=== PATIENT | male | born 1985 | race Hispanic/Latino ===

== ENCOUNTER 2021-09-22 10:08 | Emergency (ER) | payer OTHER ==
[~2021-09-22] VITALS: Ht 165.1 cm; Wt 73.9 kg
[2021-09-22 10:10] VITALS: BP 121/74
[2021-09-22] MEDS ORDERED: IBUPROFEN 600MG TAB PO ONE (13:45)
== END 2021-09-22 13:58 | disposition home or self-care (01) ==
LOC: M ED 10:08
DX: S16.1XXA Strain of muscle, fascia and tendon at neck level, initial encounter (principal); V49.40XA Driver injured in collision with unspecified motor vehicles in traffic accident, initial encounter; Y92.9 Unspecified place or not applicable; Y93.9 Activity, unspecified; Y99.9 Unspecified external cause status